=== PATIENT | female | born 1970 | race Caucasian/White ===

== ENCOUNTER 2018-10-10 14:14 | Emergency (ER) | payer OTHER ==
[2018-10-10 14:21] VITALS: BP 147/81
--- NOTE | 2018-10-10 14:25 | EDPHY ---
H & P Stated Complaint: Hit head on playground Time Seen by Provider: 10/10/18 14:25 - Personal History LMP (Females 10-55): Hysterectomy Current Tetanus/Diphtheria Vaccine: Yes - Medical/Surgical History Hx Asthma: No Hx Chronic Respiratory Disease: No Hx Diabetes: No Hx Cardiac Disease: No Hx Renal Disease: No Hx Cirrhosis: No Hx Alcoholism: No Other PMH: Denies - Social History Smoking Status: Never smoked Constitutional: Initial Vital Signs Temperature (C) 36.3 C 10/10/18 14:16 Heart Rate 82 10/10/18 14:16 Respiratory Rate 18 10/10/18 14:16 Blood Pressure 147/81 H 10/10/18 14:16 O2 Sat (%) 97 10/10/18 14:16 O2 Delivery Mode Room Air Allergies/Adverse Reactions: Sulfa (Sulfonamide Antibiotics) Allergy (Verified 10/10/18 14:21) Home Medications: Medication Instructions Recorded NK [No Known Home Meds] 10/10/18 Medical Decision Making ED Course/Re-evaluation: CHIEF COMPLAINT: Nose injury HISTORY OF PRESENT ILLNESS: The patient is a 48 y/o female complaining of a nose injury after hitting her nose and eye against a metal playground structure. She denies loss of consciousness. The swelling and pain in her nose has increased and she does not believe her "nose is straight". Due to her worsening symptoms she decided to present to the emergency department. No fever, headache, chest pain, shortness of breath, abdominal pain, urinary or bowel complaints, numbness, paresthesias. REVIEW OF SYSTEMS: A comprehensive 10 system review of systems is otherwise negative aside from elements mentioned in the history of present illness and medical decision making. PHYSICAL EXAM: HR, BP, O2 Sat, RR. Temp noted General Appearance: Alert, well hydrated, appropriate, and non-toxic appearing. Head: Atraumatic without scalp tenderness or obvious injury. No orbital or facial fractures Eyes: Pupils equal, round, reactive to light and accommodation, EOMI, no trauma , no injection. Ears: Clear bilaterally, no perforation, normal landmarks Nose: Redundant left turbinate tissue which is old, no septal hematoma. No rhinorrhea, clear. Throat: There is no erythema or exudates, no lesions, normal tonsils, mucus membranes moist. Neck: Supple, 2+ carotid upstroke, nontender, no lymphadenopathy. Respiratory: No retractions, no distress, no wheezes, and no accessory muscle use. Lungs are clear to auscultation bilaterally. Cardiovascular: Regular rate and rhythm, no murmurs, rubs, or gallops. Bilateral carotid, radial, dorsalis pedis, and posterior tibial pulses intact. Good capillary refill all extremities. Gastrointestinal: Abdomen is soft, nontender, non-distended, no masses, no rebound, no guarding, no peritoneal signs. Musculoskeletal: Normal active ROM of all extremities, atraumatic. Neurological: Alert, appropriate, and interactive. The patient has normal DTRs and non-focal cranial nerves, motor, sensory, and cerebellar exam. Skin: No rashes, good turgor, no nodules on palpation. Past medical history: Denies Past surgical history: Denies Family history: Denies Social history: , lives in [place], employed DIAGNOSTICS/PROCEDURES/CRITICAL CARE TIME: Not indicated. DIFFERENTIAL DIAGNOSIS: The differential diagnosis for the patient's head injury included but was not limited to nasal fracture, concussion, skull fracture, intra-parenchymal contusion, subarachnoid, subdural and epidural hematoma. MEDICAL DECISION MAKING: The patient is a 48 y/o female presenting with a nose injury after hitting her nose and eye against a metal playground structure. On exam there is no septal hematoma and no orbital or facial fractures. She does have a redundant left turbinate tissue which is old. This patient has a clinically fractured nose. Imaging studies are not indicated. I have referred her to an ENT so they can further evaluate this patient and potentially realign the fracture. I have advised this patient to apply ice to sore areas and take Motrin as directed. Return precautions provided; patient is comfortable with this plan. Departure - Departure Disposition: Home, Routine, Self-Care Clinical Impression: Nasal fracture Qualifiers: Encounter type: initial encounter Fracture type: closed Qualified Code(s): S02.2XXA - Fracture of nasal bones, initial encounter for closed fracture Condition: Good Instructions: Nasal Fracture (ED) Additional Instructions: 1. Follow up with an ENT in the next several days. 2. Apply ice to sore areas. 3. Take ibuprofen as directed. 4. Return to emergency department for fever, severe bleeding, worsening pain or other concerns. Referrals: Matthew Clements MD [Medical Doctor] - As per Instructions Report Scribed for: Hao Persaud Report Scribed by: Clarissa Mejía Date of Report: 10/10/18 Time of Report: 14:26
== END 2018-10-10 14:41 | disposition home or self-care (01) ==
DX: S02.2XXA Fracture of nasal bones, initial encounter for closed fracture (principal); W22.8XXA Striking against or struck by other objects, initial encounter; Y92.830 Public park as the place of occurrence of the external cause

== ENCOUNTER → 2019-01-03 | Outpatient (CLI) | payer OTHER | LOC: BMCIMAGING 14:52 | PROVIDERS: ATTEND Internal Medicine | DX: M79.642 Pain in left hand (principal); M25.532 Pain in left wrist; M79.89 Other specified soft tissue disorders ==